=== PATIENT | female | born 1995 | race American Indian/Alaskan Native ===

== ENCOUNTER 2022-02-17 12:12 | Emergency (ER) | payer SELFPAY ==
[2022-02-17] MEDS ORDERED: levETIRAcetam 1000 MG/NS 0.75% 1,000 MG/100 ML BAG IV SCH (12:30)
[2022-02-17] MEDS ORDERED: levETIRAcetam 1,000 MG in DEXTROSE 5% IN WATER 100 ML IV ONE (12:31)
--- NOTE | 2022-02-17 12:33 | Emergency Department Report ---
ED Seizure HPI - General Chief Complaint: Seizure Stated Complaint: SEIZURE Time Seen by Provider: 02/17/22 12:24 Source: patient, EMS Mode of arrival: Stretcher Limitations: No Limitations - History of Present Illness Initial Comments: Patient is a 26-year-old female brought in by EMS after witnessed seizure at a store. She has history of seizures and is on Keppra however noncompliant with her medications. When asked why she does not take her Keppra patient states she is out of her medication. - Related Data Previous Rx's Medication Instructions Recorded Last Taken Type levETIRAcetam [Keppra TAB] 500 mg PO BID #60 tablet 02/17/22 Unknown Rx Allergies Allergy/AdvReac Type Severity Reaction Status Date / Time No Known Allergies Allergy Verified 02/17/22 12:16 ED Review of Systems ROS: Stated complaint: SEIZURE Other details as noted in HPI Constitutional: denies: chills, fever Respiratory: denies: cough, shortness of breath, wheezing Cardiovascular: denies: chest pain, palpitations Gastrointestinal: denies: abdominal pain, nausea, diarrhea Genitourinary: denies: urgency, dysuria, discharge Musculoskeletal: denies: back pain, joint swelling, arthralgia Skin: denies: rash, lesions Neurological: denies: headache, weakness, paresthesias Psychiatric: denies: anxiety, depression ED Past Medical Hx - Medications Home Medications: Home Medications Medication Instructions Recorded Confirmed Last Taken Type levETIRAcetam [Keppra TAB] 500 mg PO BID #60 tablet 02/17/22 Unknown Rx ED Physical Exam - General Limitations: No Limitations General appearance: in no apparent distress, postictal - Head Head exam: Present: atraumatic, normocephalic - Respiratory Respiratory exam: Present: normal lung sounds bilaterally. Absent: respiratory distress - Cardiovascular Cardiovascular Exam: Present: regular rate, normal rhythm, normal heart sounds - GI/Abdominal GI/Abdominal exam: Present: soft. Absent: distended, tenderness - Rectal Rectal exam: Present: deferred - Neurological Exam Neurological exam: Present: other (Postictal) - Skin Skin exam: Present: warm, dry, intact, normal color ED Course Vital Signs 02/17/22 02/17/22 12:14 12:28 Temperature 98.7 F 98.3 F Pulse Rate 88 73 Respiratory 18 20 Rate Blood Pressure 136/84 Blood Pressure 120/77 136/84 [Left] O2 Sat by Pulse 97 97 Oximetry ED Medical Decision Making - Medical Decision Making Patient loaded with 1 g of IV Keppra. Vital signs remained stable. Patient more alert on reassessment. She is stable for discharge home. Will discharge with prescription for Keppra. Critical care attestation.: If time is entered above; I have spent that time in minutes in the direct care of this critically ill patient, excluding procedure time. ED Disposition Clinical Impression: Seizure Disposition: 01 HOME / SELF CARE / HOMELESS Is pt being admited?: No Does the pt Need Aspirin: No Condition: Stable Instructions: Seizure, Adult, [id number] Additional Instructions: Please follow-up with your regular doctor at your earliest convenience. You may return if your seizures persist. Time of Disposition: 15:03
[2022-02-17 16:55] VITALS: BP 134/78
== END 2022-02-17 17:38 | disposition home or self-care (01) ==
LOC: ED 12:12
DX: R56.9 Unspecified convulsions (principal); Z79.899 Other long term (current) drug therapy
CPT/HCPCS: 96374; 99283; J1953; 96365; 96366